=== PATIENT | female | born 2000 | race Caucasian/White ===

== ENCOUNTER 2022-05-24 13:18 | Emergency (ER) | payer OTHER ==
[2022-05-24] MEDS ORDERED: Ondansetron ODT 4 MG TAB ONE (13:49)
== END 2022-05-24 14:34 | disposition home or self-care (01) ==
LOC: CSHERS 13:18
DX: S06.0X0A Concussion without loss of consciousness, initial encounter (principal); W52.XXXA Crushed, pushed or stepped on by crowd or human stampede, initial encounter; Y93.63 Activity, rugby
CPT/HCPCS: 70450; Q0162